=== PATIENT | female | born 1980 | race African-American/Black ===

== ENCOUNTER 2019-06-09 23:32 | Inpatient (IN) | payer MEDICAID ==
[~2019-06-09] VITALS: Ht 170.2 cm; Wt 80.0 kg
[~2019-06-09 23:32] MED LIST: FLAGYL500 MG PO; IBU800 M1 PO; LYRICA 100MG C100 M1 PO; METHERGINE0.2 MG/TAB PO; PERCOCET 325 MG1 TA2 PO; ULTRAM 50MG TAB50 MG PO; ZOLOFT 50MG50 MG PO
--- NOTE | 2019-06-09 23:40 | NUR ---
2340- Pt arrived on unit ambulatory, escorted by family and with complaints of contractions. Pt oriented to room and changed into a gown. 2345- Pt reports contractions started a couple hours prior. Pt denies any leaking of fluid or vaginal bleeding and reports normal movement. EFM and toco monitors started. Vital signs WNL. SVE by this RN 4-5/75/-2l. 2353- EFM tracing maternal HR as coorelates with SPO2 monitor due frequent movement and position changes. 0010- Spoke with Dr. Garcia for an update on pt's arrival, FHR tracing and SVE reviewed. Orders for labor admission received. 0015- FHR tracing difficult due to maternal movement. Audible movement and frequent attempts to adjust EFM. Spoke with DIANA Alonso regarding pt's arrival and request for epidural. 0030- Multiple unsuccessful IV attempts. 0040- DIANA Alonso at the bedside to assist with IV and epidural placement. 0047- Pt off EFM and toco monitors to bathroom.
[2019-06-10] VITALS (46 sets, daily range): BP systolic 89–138; BP diastolic 47–88; PULSE 70–145; TEMP 97.4–98.4
[2019-06-10] MEDS ORDERED: NATURAL IRON65 MG
[2019-06-10] MEDS ORDERED: [UNRECOGNIZED DRUG - CODE] SQ
[2019-06-10] MEDS ORDERED: BENADRYL50 MG PO (00:01)
--- NOTE | 2019-06-10 00:53 | NUR ---
0053- DIANA Alonso at the bedside. Pt positioned sitting up on edge of the bed for epidural placement. SPO2 monitor started. EFM tracing maternal HR as coorelates with SPO2 monitor. 0104- Single shot per DIANA. See anesthesia records for details. 0107- Test dose given per DIANA. See anesthesia records for details. 0120- Pt repositioned back in bed with left wedge. EFM and toco monitors adjusted. 0127- Pt reports not feeling well. 0128- Pt passed out. Additional staff and DIANA Alonso called to bedside for assistance. SPO2 monitor started. O2 at 10L via facemask started. 0129- Pt recovered quickly. Vital signs WNL. 0139- Pt repositioned with right wedge. 0144- Pt reports not feeling well. BP 79/43 P 85. IV fluids increased. DIANA Alonso at the bedside for assistance. 0148- Ephedrine given. See EMAR for details. 0150- Pt passed out and recovered quickly. Vital signs improving. 0151- Ephedrine given per DIANA Alonso. See EMAR for details. 0153- Ephedrine given per DIANA Alonso. See EMAR for details. 0154- Repositioned pt to left lateral. EFM and toco monitors adjusted. 0155- Emesis x1. 0205- Difficult to determine FHR baseline due to marked variability. 0225- Mcgee placed without complications. 0230- Repositioned pt to right lateral. Difficult to determine FHR baseline due to marked variability. 0240- Difficult to determine FHR baseline due to marked varibility. 0310- IV not working due to infiltrate. Celeste call to bedside for assistance. 0348- IV started and fluids infusing. 0357- SVE by this RN with no change. 0400- Spoke with Dr. Garcia for an update on pt's status with SVE, FHR tracing and ctx pattern reviewed. Orders to started pitocin at 5am if pt not flaquito.
[2019-06-10 01:06] LABS: BASO % 0.2 % (0.0-2.0); EOS # 0.1 (0.0-0.7); EOS % 0.6 % (0-4.0); GRAN # 6.4 (1.4-6.5); GRAN % 75.2 % (42.2-75.2); HEMOGLOBIN 10.5 g/dl (12.5-16.0); LYMPH # 1.5 (1.2-3.4); LYMPH % 17.2 % (20.0-51.0); MEAN CELL VOLUME 74 fl (80.0-100.0); MEAN CORPUSCULAR HEMOGLOBIN 23 pg (27.0-31.0); MEAN CORPUSCULAR HGB CONC 31 g/dl (33.0-37.0); MEAN PLATELET VOLUME 11.4 fl (7.4-10.4); MONO # 0.5 (0.1-0.6); MONO % 6.3 % (1.7-9.3); PLATELET COUNT 256 K/mm3 (130-400); RED BLOOD COUNT 4.55 M/mm3 (4.10-5.30); REDCELL DISTRIBUTION WIDTH-CV 16.3 % (11.5-14.5)
[2019-06-10 01:32] LABS: HEMATOCRIT 33.8 % (37.0-47.0)
--- NOTE | 2019-06-10 06:35 | NUR ---
0635-Recieved bedside shift report from CARLOS ENRIQUE Jenkins. FHR tracing intermittent at this time, adjusted EFM. 0645-SVE /2, Updated patient on plan of care and plan to start pitocin per Dr. Garcia order. 0710-Pitocin at 2mu per protocol and order.
--- NOTE | 2019-06-10 07:50 | NUR ---
0750-Dr. Hernandez on unit. Reviews chart and FHR monitor. In to see patient and discuss plan of care. Bedside sono by , vertex confirmed. 0800-SVE by , /2, AROM clear fluid. [place] care provided, Repositioned WR. 0828-Variable decel down to 100bpm, spontaneous return to baseline with difficulty tracing FHR Audible FHR 140bpm, RN at bedsdie frequently readjusting EFM. Repostioined WL 0840-Difficulty tracing FHR, RN adjusting EFM.
--- NOTE | 2019-06-10 10:55 | NUR ---
1055-SVE Bedside Sonon again by Dr. Hernandez, OP positionied confirmed by MD, Dr. Hernandez discussed options for turning . 1135-SVE by MD , set up for delivery. 1145-Patient begins pushing with MD at bedside, moves vertex well. Decel in FHR down to 90bpm following pushign efforts, slow return to baseline over 80seconds. 1148-Pulse ox placed on maternal index finger, FHR 145-155bpm, maternal HR 125-135bpm. Patient continues to move vertex well. 1206-Spontaneous delivery of infant head immediately followed by body. Viable female to mothers abdomen, nares and mouth bulb suctioned by MD. Cord clamped x2 and cut by father of . Care of assumed by CARLOS ENRIQUE Schaffer. 1210-Spontaneous delivery of intact placenta by Dr. Hernandez. Fundal massage firm. Lochia WNL, EBL 300ml, Pitocin bolus per MD order and protocol. [place] care provided. Perineum intact. Updated on safety and plan of care.
--- NOTE | 2019-06-10 14:50 | NUR ---
1450-Patient unable to lift LLE and hold, was placed on bedpan and voids 250ml 1530-Pivot to wheelchair with assist x2, taken to PP Room 215, easily pivots to Bed with assist x2. Oriented to room Updated on safety and plan of care.
[2019-06-11 03:33] VITALS: BP 112/71; PULSE 104; TEMP 98
[2019-06-11 08:00] VITALS: BP 114/64; PULSE 78; TEMP 98.2
[2019-06-11] MEDS ORDERED: LOVENOX 4040 MG/0.4 SQ (08:11)
[2019-06-11 08:25] LABS: HEMATOCRIT 22.8 % (37.0-47.0); HEMOGLOBIN 7.1 g/dl (12.5-16.0)
--- NOTE | 2019-06-11 10:16 | NUR ---
Initial visit; Mom thanked Track Superintendent for offering congratulations and God's vlessings for the of her daughter. Track Superintendent thanked family for choosing [facility].
[2019-06-11 13:00] VITALS: BP 116/64; PULSE 78; TEMP 98.2
== END 2019-06-11 14:30 | disposition home or self-care (01) | DRG 807 ==
LOC: LDRO 23:32 → OB 06-10 00:14 → LDR 06-10 00:14 → OB 06-10 15:30
PROVIDERS: Obstetrics & Gynecology; ADMIT Student in an Organized Health Care Education/Training Program
PROC: 10E0XZZ Delivery of Products of Conception, External Approach (ICD-10-PCS; principal; 2019-06-10)
DX: O99.02 Anemia complicating childbirth (principal); Z37.0 Single live birth; Z3A.39 39 weeks gestation of pregnancy; O75.89 Other specified complications of labor and delivery; G89.29 Other chronic pain; Z86.711 Personal history of pulmonary embolism; Z86.718 Personal history of other venous thrombosis and embolism
CPT/HCPCS: J1650; J2590; J2795; J7120